=== PATIENT | female | born 1950 | race Caucasian/White ===

== ENCOUNTER 2020-09-26 13:37 | Outpatient (CLI) | payer MEDICARE, SELFPAY ==
--- NOTE | 2020-09-26 12:45 | DI.CT_ITS ---
Exam(s) CT HEAD WO EXAM: CT HEAD WO CLINICAL HISTORY: amnesia transient on Xarelto, memory change, R41.3-other amnesia. TECHNIQUE: Imaging Protocol: Axial computed tomography images with coronal and sagittal reformatted images were created and reviewed COMPARISON: No exams were available for comparison FINDINGS: There are no skull fractures nor fluid in the visualized paranasal sinuses. There is no evidence of intracranial hemorrhage, mass effect, or shift of midline structures. There are no extra-axial fluid collections. The ventricles are not enlarged or shifted and there is no blo od within the ventricular system nor within the basal cisterns. IMPRESSION: No acute intracranial findings on this noninfused CT scan of the brain. RADIATION DOSE DELIVERED: 799.67mGy.cm Total DLP DATA REPOSITORY: All CT scans at this facility are submitted to the National Radiology Data Registry (NRDR) Dose Index Registry (DIR) with the [employer] (ACR). RADIATION OPTIMIZATION: All CT scans at this facility use at least one of these dose optimization te chniques: automated exposure control; mA and/or kV adjustment per patient size (includes targeted exa ms where dose is matched to clinical indication); or iterative reconstruction.
--- OUTSIDE RECORDS SUMMARY | 2020-09-26 13:43 | XMS_ITS | Continuity of Care Document ---
:1950 Author Organization [facility] Address [address] [place] [id number]- Care Team Providers Name Role Phone MY Primary Care Physician Encounter BVT Date(s): 03/13/20 - 03/13/[address] [address]- Discharge Disposition: Home Attending Physician: ARBAHAN PEPE Admitting Physician: ABRAHAN PEPE Allergies, Adverse Reactions, Alerts Substance Reaction Severity Status erythromycin Anaphylaxis Active penicillin Anaphylaxis Active Bee Stings Active Assessment and Plan Future Appointments Immunizations Given and Recorded Vaccine Date Status Refusal Reason influenza, inactivated 11/22/19 Recorded influenza, inactivated 11/22/19 Recorded influenza, inactivated 11/22/18 Recorded influenza, inactivated1 11/12/17 Recorded pneumococcal, unspecified formulation 05/11/16 Recorded ZOS, shingles 12/14/13 Recorded Td(adult) unspecified formulation 08/06/08 Recorded 1Location History: [facility] [address], [place] Medications Advil 200 mg oral tablet mg tab(s), Oral, q6hr, 0 Refill(s) Start Date: 11/16/17 Status: Orderedamitriptyline 10 mg oral tablet 10 mg = 1 tab(s), Oral, Once a day (at bedtime), # 90 tab(s), 3 Refill(s), [facility]: [facility]. UNIT #, 1 tab(s) Oral Once a day (at bedtime) Start Date: 02/13/20 Status: Orderedcalcium (as carbonate) 600 mg oral tablet 1,200 mg = 2 tab(s), Oral, Daily, 0 Refill(s) Start Date: 02/19/18 Status: Orderedcannabidiol See Instructions, 25 mg Oral BID, 0 Refill(s) Start Date: 06/09/19 Status: Orderedcyclobenzaprine 10 mg oral tablet 10 mg = 1 tab(s), Oral, TID, PRN PRN for spasm, # 40 tab(s), 3 Refill(s), Pharmacy: [facility] [address] #, 1 tab(s) Oral TID,PRN:for spasm Start Date: 07/25/19 Status: OrderedFish Oil 500 mg oral capsule mg cap(s), Oral, BID, 0 Refill(s) Start Date: 09/26/19 Status: Orderedibandronate 150 mg oral tablet 150 mg = 1 tab(s), Oral, qMonth, # 3 tab(s), 3 Refill(s), Pharmacy: [facility] [address] UN[address] #, 1tab(s) Oral qMonth Start Date: 05/19/19 Status: Orderedmetoprolol succinate 100 mg oral tablet, extended release 100 mg = 1 tab(s), Oral, Daily, # 90 tab(s), 3 Refill(s), Pharmacy: [facility] [address] #, Replaces the 50 mg tabs, 1 tab(s) Oral Daily Start Date: 09/26/19 Status: Orderedtriamcinolone 0.1% topical ointment 1 santiago, TOP, TID, # 15 gm, 0 Refill(s), Pharmacy: [facility] UN[address] #, 1 santiago TOP TID Start Date: 01/16/20 Status: OrderedVitamin B12 0 Refill(s) Start Date: 01/18/18 Status: OrderedVitamin D3 400 intl units oral capsule 400 IntUnit = 1 cap(s), Oral, Daily, 0 Refill(s) Start Date: 02/19/18 Status: OrderedXarelto 20 mg oral tablet 20 mg = 1 tab(s), Oral, qPM, with evening meal, # 90 tab(s), 3 Refill(s), Pharmacy: [facility] [address] UN[address] #, 1 tab(s) Oral qPM,Instr:with evening meal Start Date: 02/20/20 Status: Ordered Problem List Condition Effective Dates Status Health Status Informant Paroxysmal atrial Active fibrillation(Confirmed) Procedures Procedure Date Related Diagnosis Body Site Status Mammography assessment (Category 2) - 04/08/16 Completed Benign finding Mammography assessment (Category 1) - 03/12/15 Completed Negative Bone density scan 01/02/15 Completed Mammography assessment (Category 2) - 12/13/13 Completed Benign finding Mammography assessment (Category 1) - 09/29/12 Completed Negative Bone density scan 08/24/12 Completed Results Laboratory List Name Date Automated Differential Standard 03/13/20 CBC w/Diff Standard 03/13/20 Ferritin Serum 03/13/20 Iron Level 03/13/20 Most recent to oldest [Reference Range]: 1 NRBC Auto Pct [0.00-0.20 %] 0.00 % (03/13/20 8:08 AM) Hct [34.1-44.9 %] 39.7 % (03/13/20 8:08 AM) Hgb [11.5-15.7 gm/dL] 12.6 gm/dL (03/13/20 8:08 AM) Iron [37.0-145.0 ug/dL] 45.0 ug/dL (03/13/20 8:08 AM) Lymph Auto [15.0-45.0 %] 25.0 % (03/13/20 8:08 AM) MCH [25.6-32.2 pg] 26.5 pg (03/13/20 8:08 AM) MCHC [32.3-36.5 gm/dL] 31.7 gm/dL *LOW* (03/13/20 8:08 AM) MCV [79.4-94.8 fL] 83.6 fL (03/13/20 8:08 AM) Weld Auto [4.0-14.0 %] 7.0 % (03/13/20 8:08 AM) MPV [9.4-12.4 fL] 9.7 fL (03/13/20 8:08 AM) Neutro Auto [50.0-75.0 %] 65.0 % (03/13/20 8:08 AM) Platelet [150-400 x10(3)/uL] 379 x10(3)/uL (03/13/20 8:08 AM) RBC [3.93-5.22 x10(6)/uL] 4.75 x10(6)/uL (03/13/20 8:08 AM) Basophil Auto [0.0-2.0 %] 1.0 % (03/13/20 8:08 AM) Eos Auto [0.0-8.0 %] 1.7 % (03/13/20 8:08 AM) WBC [4.0-10.0 x10(3)/uL] 7.0 x10(3)/uL (03/13/20 8:08 AM) Ferritin, Serum [13.0-150.0 ng/mL] 69.6 ng/mL (03/13/20 8:08 AM) Lymph Absolute [1.20-3.70 x10(3)/uL] 1.76 x10(3)/uL (03/13/20 8:08 AM) Weld Absolute [0.20-0.40 x10(3)/uL] 0.49 x10(3)/uL *HI* (03/13/20 8:08 AM) Eos Absolute [0.04-0.54 x10(3)/uL] 0.12 x10(3)/uL (03/13/20 8:08 AM) NRBC Absolute [0.00-0.01 x10(3)/uL] 0.00 x10(3)/uL (03/13/20 8:08 AM) Neutro Absolute [1.56-6.13 x10(3)/uL] 4.58 x10(3)/uL (03/13/20 8:08 AM) RDW-CV [11.7-14.4 %] 13.4 % (03/13/20 8:08 AM) Immature Gran % [0.00-2.30 %] 0.30 % (03/13/20 8:08 AM) Immature Gran Absolute 0.02 x10(3)/uL *NA* (03/13/20 8:08 AM) Basophil Absolute [0.00-0.10 x10(3)/uL] 0.07 x10(3)/uL (03/13/20 8:08 AM) Social History Social History Type Response Smoking Status Never (less than 100 in life time) entered on: 06/09/19 Sex
--- OUTSIDE RECORDS SUMMARY | 2020-09-26 13:43 | XMS_ITS | Continuity of Care Document ---
:1950 Author Organization [facility] Address [address] [place] [id number]- Care Team Providers Name Role Phone RATTE Primary Care Physician Encounter BVT [facility] [id number] Date(s): 06/07/19 - 06/07/[address] [address]- Encounter Diagnosis Postmenopausal bleeding (Final) - Discharge Disposition: Home or Self Care Attending Physician: JOSSELINE AMOR MD Admitting Physician: JOSSELINE AMOR MD Allergies, Adverse Reactions, Alerts Substance Reaction Severity Status erythromycin Anaphylaxis Active penicillin Anaphylaxis Active Bee Stings Active Assessment and Plan Future Appointments Immunizations Given and Recorded Vaccine Date Status Refusal Reason influenza, inactivated 11/22/18 Recorded influenza, inactivated1 11/12/17 Recorded pneumococcal, unspecified formulation 05/11/16 Recorded ZOS, shingles 12/14/13 Recorded Td(adult) unspecified formulation 08/06/08 Recorded 1Location History: [facility] [address], [place] Medications Advil 200 mg oral tablet mg tab(s), Oral, q6hr, 0 Refill(s) Start Date: 11/16/17 Status: Orderedamitriptyline 10 mg oral tablet 10 mg = 1 tab(s), Oral, Once a day (at bedtime), # 90 tab(s), 3 Refill(s), [facility]: [facility] #, 1 tab(s) Oral Once a day (at bedtime) Start Date: 02/09/19 Status: Orderedamitriptyline 10 mg oral tablet 10 mg = 1 tab(s), Oral, HS, # 90 tab(s), 3 Refill(s), Pharmacy: [address] UNIT #, 1 tab(s) Oral HS Start Date: 05/07/17 Status: Orderedcalcium (as carbonate) 600 mg oral tablet 1,200 mg = 2 tab(s), Oral, Daily, 0 Refill(s) Start Date: 02/19/18 Status: Orderedcyclobenzaprine 10 mg oral tablet 10 mg = 1 tab(s), Oral, TID, PRN PRN for spasm, # 40 tab(s), 3 Refill(s), Pharmacy: [address] UNIT #, 1 tab(s) Oral TID,PRN:for spasm Start Date: 05/07/17 Status: Orderedferrous sulfate 325 mg (65 mg elemental iron) oral delayed release tablet See Instructions, 1 tab(s) Oral every other day, 0 Refill(s) Start Date: 02/19/18 Status: Orderedibandronate 150 mg oral tablet 150 mg = 1 tab(s), Oral, qMonth, # 3 tab(s), 3 Refill(s), Pharmacy: [address] UNIT #, 1tab(s) Oral qMonth Start Date: 05/19/19 Status: Orderedmetoprolol succinate 50 mg oral tablet, extended release 100 mg = 2 tab(s), Oral, Daily, # 180 tab(s), 0 Refill(s), Pharmacy: [address] UNIT #, This is a dosage increase to 100mg; replaces previous rx of 75mg, 2 tab(s) Oral Daily Start Date: 05/09/19 Status: OrderedVitamin B12 0 Refill(s) Start Date: 01/18/18 Status: OrderedVitamin D3 400 intl units oral capsule 400 IntUnit = 1 cap(s), Oral, Daily, 0 Refill(s) Start Date: 02/19/18 Status: OrderedXarelto 20 mg oral tablet 20 mg = 1 tab(s), Oral, qPM, with evening meal, # 90 tab(s), 3 Refill(s), Pharmacy: [address] UNIT #, 1 tab(s) Oral qPM,Instr:with evening meal Start Date: 02/09/19 Status: Ordered Problem List Condition Effective Dates [...] Negative Bone density scan 08/24/12 Completed Results Radiology Reports true Exam Date Time Procedure Performing Provider Status 06/07/19 3:35 PM US Pelvis and Transvaginal Meenu Hernandez; Auth (Verified) Notes:(US Pelvis and Transvaginal) Reason For Exam: PMBUS Pelvis and Transvaginal EXAMINATION: US Pelvis and Transvaginal CLINICAL HISTORY: PMB;N95.0 Postmenopausal bleeding PROCEDURE: Grayscale and color Doppler imaging of the pelvis was performed. FINDINGS: The uterus is unremarkable and measures 5 x 4 x 3 cm.(LxWxH). Endometrium is not thickened and measures approximately 2 to 3 mm. This may represent endometrial atrophy. The right ovary is overall unremarkable and measures 2 x 1.7 x 1.4 cm. The left ovary is not seen. No masses or abnormal fluid collections are identified. IMPRESSION: No endometrial thickening. Suggestion for endometrial atrophy. Thank you for letting us participate in the care of this patient. For questions regarding this report, please contact the number below. Final Dictated: 06/07/2019 3:52 pm ZEV MURPHY Signed (Electronic Signature): 06/07/2019 3:52 pm Signed by: ZEV MURPHY Technologist: Meenu Hernandez Social History Social History Type Response Smoking Status Never (less than 100 in life time) entered on: 01/07/17 Sex
--- OUTSIDE RECORDS SUMMARY | 2020-09-26 13:44 | XMS_ITS | Continuity of Care Document ---
:1950 Author Organization [facility] Address [address] [place] [address] Care Team Providers Name Role Phone RATTE Primary Care Physician Encounter BVT Date(s): 07/14/19 - 07/14/19 [facility] [address] [place] [address] [place] [address]- Encounter Diagnosis PMB (postmenopausal bleeding) (Discharge Diagnosis) - 07/14/19 Cervical cancer screening (Discharge Diagnosis) - 07/14/19 Discharge Disposition: Home or Self Care Attending Physician: JOSSELINE AMOR MD Allergies, Adverse Reactions, Alerts Substance Reaction Severity Status erythromycin Anaphylaxis Active penicillin Anaphylaxis Active Bee Stings Active Assessment and Plan Extracted from: Title: [facility]--postmenopausal bleeding Author: Stephanie AMOR MD Date: 07/14/19 History of Present Illness Heavenly presents today for an exam. She w as previously seen via telehealth visit for a single episode of vaginal spotting lasting 1 day. A subsequent pelvic ultrasound revealed a very thin endometrium. She reports no further bleeding since t hat episode. She does have a history of intermittent constipation secondary to iron supplementation. She reports needing to strain with bowel movements. She do es not take a stool softener. She denie s any other [employer] E[employer]OMIST complaints or concerns. No problems with urination, no urinary incontinence, no symptoms of prolapse, no vaginal discharge or odor. Following her exam (normal), I reassured her that it does not appear that her bleeding represents a gynecologic process. It is most likely related to her constipation. I am advising she initiate stool softeners. If she has any further blee ding she should call me. We also discussed the use of a tampon to determine whether or not the origin is vaginal. Finally, I recommend she follow-up in a year f or a normal annual exam. In the meantim e, I will order her a mammogram since she is due. All questions were answered. Health Status Allergies: Allergic Reactions (All) Severity Not Documented Bee Stings- No reactions were documented . Erythromycin- Anaphylaxis. Penicillin- Anaphylaxis. Current medications: (Selected) Prescriptions Prescribed Xarelto 20 mg oral tablet: 20 mg = 1 tab (s), Oral, qPM, with evening meal, 90 tab(s), 3 Refill(s) amitriptyline 10 mg oral tablet: 10 mg = 1 tab(s), Oral, Once a day (at bedtime), 90 tab(s), 3 Refill(s) amitriptyline 10 mg oral tablet: 10 mg, 1 tab(s), Oral, HS, 90 tab(s), 3 Refill(s) cyclobenzaprine 10 mg oral tablet: 10 mg , 1 tab(s), Oral, TID, PRN: for spasm, 40 tab(s), 3 Refill(s) ibandronate 150 mg oral tablet: 150 mg = 1 tab(s), Oral, qMonth, 3 tab(s), 3 Refill(s) metoprolol succinate 50 mg oral tablet, extended release: 100 mg = 2 tab(s), Oral, Daily, 180 tab(s), 0 Refill(s) Documented Medications Documented Advil 200 mg oral tablet: mg, tab(s), Or al, q6hr, 0 Refill(s) Vitamin B12: 0 Refill(s) Vitamin D3 400 intl units oral capsule: 400 IntUnit = 1 cap(s), Oral, Daily, 0 Refill(s) calcium (as carbonate) 600 mg oral table t: 1,200 mg = 2 tab(s), Oral, Daily, 0 Refill(s) cannabidiol: See Instructions, 25 mg Ora l BID, 0 Refill(s) ferrous sulfate 325 mg (65 mg elemental iron) oral delayed release tablet: See Instructions, 1 tab(s) Oral every other day, 0 Refill(s) Problem list (past medical history): All Problems Paroxysmal atrial fibrillation / [id number] / Confirmed Inactive: Fibromyalgia / [id number] Inactive: Insomnia / [id number] Inactive: MVP (mitral valve prolapse) / [id number] Inactive: Psoriatic arthritis / [id number] 9 Resolved: / Resolved: / Resolved: / Resolved: / Resolved: / Canceled: Atrial fibrillation / 53537045 Canceled: Paroxysmal [place] / [id number] Review of Systems Constitutional: No fever, No chills. Eye Ear/Nose/Mouth/Throat Cardiovascular: Negative. Respiratory: Negative. Breast: Negative. Gastrointestinal: Constipation. Genitourinary: No dysuria, No urinary i ncontinence. Gynecologic: No vaginal discharge, Min es vaginal odor. Hematology/Lymphatics Endocrine Immunologic Musculoskeletal Integumentary Neurologic Psychiatric: Negative. Physical Examination VS/Measurements Vital Signs 07/14/2019 8:54 EDT Temperature Tympanic 36.3 DegC LOW Peripheral Pulse Rate 88 bpm Systolic Blood Pressure 112 mmHg Diastolic Blood Pressure 68 mmHg SpO2 97 % , Measurements from flowsheet : Measurem ents 07/14/2019 8:54 EDT Height 163 cm Weight 58.97 kg Body Mass Index 22.2 kg/m2 Constitutional: -Appearance : well-nourished, well- developed, alert Respiratory: -Respiratory Effort : unlabored Cardiovascular: -Peripheral Vascular System: Extrem ities: no edema Genitourinary: -External Genitalia : no inflammati on, no lesions -Vagina : normal vault, no abnormal discharge, no inflammatory lesions, no masses -Urethral Meatus : no inflammation present -Bladder : non-tender -Cervix : appearance healthy, no le sions, non-tender, no discharge, no bleeding -Uterus : non-tender, no masses, no rmal size, anteflexed -Adnexa : non-tender, no masses -Anus : no lesions -Perineum : within normal limits Skin and Subcutaneous Tissue: -Genitalia / Groin : no rashes pres ent, no lesions present, no areas of discoloration Psychiatric -Mood and Affect : mood normal, aff ect appropriate -Orientation : oriented to person, place, time Impression and Plan Diagnosis PMB (postmenopausal bleeding) ([id number] N95.0). --Single episode of postmenopausal bleed ing. --No evidence of a gynecologic source. Suspect possible GI source (? secondary to constipation). --Recommend observation. If another epi sode, consider tampon test. . Patient Instructions: --I recommend you start taking a stool s oftener. --Call me if you have any further bleedi ng. --I will order a mammogram for you. --Call the office if you have not receiv ed your Pap smear results in 3 weeks.. Future AppointmentsFuture Scheduled TestsRadiologyMA Mammogram Digital Screening 07/14/19 Functional Status 07/14/19 COVID-19 Screening None Immunizations Given and Recorded Vaccine Date Status Refusal Reason influenza, inactivated 11/22/18 Recorded influenza, inactivated1 11/12/17 Recorded pneumococcal, unspecified formulation 05/11/16 Recorded ZOS, shingles 12/14/13 Recorded Td(adult) unspecified formulation 08/06/08 Recorded 1Location History: [facility] [address], [place] Medications Advil 200 mg oral tablet mg tab(s), Oral, q6hr, 0 Refill(s) Start Date: 11/16/17 Status: Orderedamitriptyline 10 mg oral tablet 10 mg = 1 tab(s), Oral, Once a day (at bedtime), # 90 tab(s), 3 Refill(s), [facility], 1 tab(s) Oral Once a day (at bedtime) Start Date: 02/09/19 Status: Orderedamitriptyline 10 mg oral tablet 10 mg = 1 tab(s), Oral, HS, # 90 tab(s), 3 Refill(s), [facility] #, 1 tab(s) Oral HS [...] spasm, # 40 tab(s), 3 Refill(s), [facility]: [facility] #, 1 tab(s) Oral TID,PRN:for spasm Start Date: 05/07/17 Status: Orderedferrous sulfate 325 mg (65 mg elemental iron) oral delayed release tablet See Instructions, 1 tab(s) Oral every other day, 0 Refill(s) Start Date: 02/19/18 Status: Orderedibandronate 150 mg oral tablet 150 mg = 1 tab(s), Oral, qMonth, # 3 tab(s), 3 Refill(s), [facility]: [facility] [address] [facility] [facility] #, 1tab(s) Oral qMonth Start Date: 05/19/19 Status: Orderedmetoprolol succinate 50 mg oral tablet, extended release 100 mg = 2 tab(s), Oral, Daily, # 180 tab(s), 0 Refill(s), [facility]acy: [facility] [address] [facility] #, This is a dosage [...] meal, # 90 tab(s), 3 Refill(s), Pharmacy: [facility] #, 1 tab(s) Oral qPM,Instr:with [...] Completed Negative Bone density scan 08/24/12 Completed Vital Signs Most recent to oldest [Reference Range]: 1 Temperature Tympanic [36.6-38.1 DegC] 36.3 DegC *LOW* (5/8/20 8:54 AM) Peripheral Pulse Rate [60-100 bpm] 88 bpm (07/14/19 8:54 AM) Blood Pressure [90-140/60-90 mmHg] 112/68 mmHg (07/14/19 8:54 AM) SpO2 [92-100 %] 97 % (07/14/19 8:54 AM) Height 163 cm (07/14/19 8:54 AM) Height/Length Measured (inches) 64.2 in (07/14/19 8:54 AM) Weight 58.97 kg (07/14/19 8:54 AM) Weight Measured (lbs) 129.734 lb (07/14/19 8:54 AM) BSA Measured 1.63 m2 (07/14/19 8:54 AM) Body Mass Index 22.2 kg/m2 (07/14/19 8:54 AM) Social History Social History Type Response Smoking Status Never (less than 100 in life time) entered on: 06/09/19 Sex
--- OUTSIDE RECORDS SUMMARY | 2020-09-26 13:44 | XMS_ITS | Continuity of Care Document ---
:1950 Author Organization [facility] Address [address] [place] [phone]- Care Team Providers Name Role Phone MY Primary Care Physician Encounter BVT Date(s): 05/17/19 - 05/17/[address] [address]- Discharge Disposition: Home or Self Care Attending Physician: ABRAHAN PEPE Admitting Physician: ABRAHAN PEPE Allergies, Adverse [...] HS, # 90 tab(s), 3 Refill(s), Pharmacy: [address] UNIT #, 1 tab(s) Oral HS Start Date: 05/07/17 Status: Orderedcalcium (as carbonate) 600 mg oral tablet 1,200 mg = 2 tab(s), Oral, Daily, 0 Refill(s) Start Date: 02/19/18 Status: Orderedcyclobenzaprine 10 mg oral tablet 10 mg = 1 tab(s), Oral, TID, PRN PRN for spasm, # 40 tab(s), 3 Refill(s), Pharmacy: [address] UNIT #, 1 tab(s) Oral TID,PRN:for spasm Start Date: 05/07/17 Status: Orderedferrous sulfate 325 mg (65 mg elemental iron) oral delayed release tablet See Instructions, 1 tab(s) Oral every other day, 0 Refill(s) Start Date: 02/19/18 Status: Orderedibandronate 150 mg oral tablet 150 mg = 1 tab(s), Oral, qMonth, # 3 tab(s), 3 Refill(s), Pharmacy: [address] UN[address] #, 1tab(s) Oral qMonth Start Date: 02/19/18 Status: Orderedmetoprolol succinate 50 mg oral tablet, extended release 100 mg = 2 tab(s), Oral, Daily, # 180 tab(s), 0 Refill(s), Pharmacy: [address] UNIT #, This is a dosage increase [...] meal, # 90 tab(s), 3 Refill(s), Pharmacy: [address] UNIT #, 1 tab(s) Oral [...] Laboratory List Name Date Automated Differential Standard 05/17/19 CBC w/Diff Standard 05/17/19 Comprehensive Metabolic Panel Standard (CMP Standard) 05/17/19 FEIBC (TIBC with Iron) 05/17/19 Ferritin Serum 05/17/19 Hemoglobin A1c DC (A1c) 05/17/19 Lipid Panel Standard 05/17/19 Vitamin D, 25-Hydroxy 05/17/19 Most recent to oldest [Reference Range]: 1 NRBC Auto Pct [0.00-0.20 %] 0.00 % (05/17/19 7:52 AM) Creatinine [0.50-0.90 mg/dL] 0.53 mg/dL (05/17/19 7:52 AM) AGAP [10.0-18.0 mmol/L] 14.9 mmol/L (05/17/19 7:52 AM) Glucose Lvl [70-100 mg/dL] 94 mg/dL (05/17/19 7:52 AM) Hct [34.1-44.9 %] 40.6 % (05/17/19 7:52 AM) Hgb [11.5-15.7 gm/dL] 12.8 gm/dL (05/17/19 7:52 AM) Hgb A1c 5.7 % *NA* (05/17/19 7:52 AM) Iron [37.0-145.0 ug/dL] 56.0 ug/dL (05/17/19 7:52 AM) Lymph Auto [15.0-45.0 %] 25.1 % (05/17/19 7:52 AM) MCH [25.6-32.2 pg] 26.3 pg (05/17/19 7:52 AM) MCHC [32.3-36.5 gm/dL] 31.5 gm/dL *LOW* (05/17/19 7:52 AM) MCV [79.4-94.8 fL] 83.5 fL (05/17/19 7:52 AM) [place] Auto [4.0-14.0 %] 6.4 % (05/17/19 7:52 AM) MPV [9.4-12.4 fL] 10.2 fL (05/17/19 7:52 AM) Neutro Auto [50.0-75.0 %] 65.6 % (05/17/19 7:52 AM) Osmolality [268.0-291.0 mOsm/kg] 279.6 mOsm/kg (05/17/19 7:52 AM) Platelet [150-400 x10(3)/uL] 342 x10(3)/uL (05/17/19 7:52 AM) RBC [3.93-5.22 x10(6)/uL] 4.86 x10(6)/uL (05/17/19 7:52 AM) Sodium Lvl [136-145 mmol/L] 140 mmol/L (05/17/19 7:52 AM) TIBC [149.0-492.0 ug/dL] 263.0 ug/dL (05/17/19 7:52 AM) Total Protein [6.6-8.7 gm/dL] 7.4 gm/dL (05/17/19 7:52 AM) Trig [0.0-149.0 mg/dL] 106.8 mg/dL (05/17/19 7:52 AM) Albumin Lvl [3.50-5.20 gm/dL] 4.30 gm/dL (05/17/19 7:52 AM) Alk Phos [35-105 IntUnit/L] 59 IntUnit/L (05/17/19 7:52 AM) ALT [0-33 IntUnit/L] 7 IntUnit/L (05/17/19 7:52 AM) AST [0-32 IntUnit/L] 16 IntUnit/L (05/17/19 7:52 AM) Basophil Auto [0.0-2.0 %] 0.9 % (05/17/19 7:52 AM) Bili Total [0.0-1.3 mg/dL] 0.3 mg/dL (05/17/19 7:52 AM) CO2 [22-29 mmol/L] 27 mmol/L (05/17/19 7:52 AM) Eos Auto [0.0-8.0 %] 1.8 % (05/17/19 7:52 AM) WBC [4.0-10.0 x10(3)/uL] 5.7 x10(3)/uL (05/17/19 7:52 AM) BUN [6-23 mg/dL] 14 mg/dL (05/17/19 7:52 AM) Calcium Lvl [8.6-10.2 mg/dL] 9.1 mg/dL (05/17/19 7:52 AM) Chloride [98-107 mmol/L] 102 mmol/L (05/17/19 7:52 AM) Potassium Lvl [3.5-5.1 mmol/L] 3.9 mmol/L (05/17/19 7:52 AM) Vitamin D 25 OH 38 ng/mL *NA* (05/17/19 7:52 AM) UIBC [112.0-347.0 ug/dL] 207.0 ug/dL (05/17/19 7:52 AM) Ferritin, Serum [13.0-150.0 ng/mL] 47.6 ng/mL (05/17/19 7:52 AM) Cholesterol Total [0-200 mg/dL] 206 mg/dL *HI* (05/17/19 7:52 AM) Lymph Absolute [1.20-3.70 x10(3)/uL] 1.42 x10(3)/uL (05/17/19 7:52 AM) [place] Absolute [0.20-0.40 x10(3)/uL] 0.36 x10(3)/uL (05/17/19 7:52 AM) Eos Absolute [0.04-0.54 x10(3)/uL] 0.10 x10(3)/uL (05/17/19 7:52 AM) NRBC Absolute [0.00-0.01 x10(3)/uL] 0.00 x10(3)/uL (05/17/19 7:52 AM) HDL Cholesterol [40-60 mg/dL] 71 mg/dL *HI* (05/17/19 7:52 AM) Neutro Absolute [1.56-6.13 x10(3)/uL] 3.72 x10(3)/uL (05/17/19 7:52 AM) RDW-CV [11.7-14.4 %] 14.6 % *HI* (05/17/19 7:52 AM) GFR >60 mL/min/1.73 m2 *NA* (05/17/19 7:52 AM) GFR NonAfrican Egyptian >60 mL/min/1.73 m2 *NA* (05/17/19 7:52 AM) LDL Calculated 114 mg/dL *NA* (05/17/19 7:52 AM) Immature Gran % [0.00-2.30 %] 0.20 % (05/17/19 7:52 AM) Immature Gran Absolute 0.01 x10(3)/uL *NA* (05/17/19 7:52 AM) eAG Calc 117 mg/dL *NA* (05/17/19 7:52 AM) Basophil Absolute [0.00-0.10 x10(3)/uL] 0.05 x10(3)/uL (05/17/19 7:52 AM) Social History Social History Type Response Smoking Status Never (less than 100 in life time) entered on: 01/07/17 Sex
--- OUTSIDE RECORDS SUMMARY | 2020-09-26 13:44 | XMS_ITS | Continuity of Care Document ---
:1950 Author Organization [facility] Address [address] [place] [address] Care Team Providers Name Role Phone MY Primary Care Physician Encounter BVT Date(s): 09/26/19 - 09/26/19 [facility] [address] [facility] [place] [address] Encounter Diagnosis Paroxysmal atrial fibrillation (Discharge Diagnosis) - 09/26/19 Discharge Disposition: Home Attending Physician: ABRAHAN PEPE Allergies, Adverse Reactions, Alerts Substance Reaction Severity Status erythromycin Anaphylaxis Active penicillin Anaphylaxis Active Bee Stings Active Assessment and Plan Extracted from: Title: BFM: Rash, A. fib, iron deficiency Author: DELFIN PEPE Date: 09/26/19 anemia, osteopenia ? Rash -Arms > legs, possibly from sun exposur e VS psoriasis VS other allergic reaction. Responding very well to prednisone. -Complete prednisone course, call if ra sh worsens again ?? Paroxysmal A. fib -s/p 2 episode??in 10 years treated in hospital, last 09/2018.??Feels well on current BB dose, HR good. -Echo 01/2017 normal, LVEF 60-65%. -Continue metoprolol??succinate??100 mg daily. Taking 2??x 50 mg for now, Rx'd 100 mg tabs for next??refill. -Continue Xarelto 20mg qPM with meal. ?? Psoriatic arthritis, ?fibromyalgia -tick panel, RF, uric acid negative/nor mal -Following with [facility] rheumatology Dr. Karla quan, Rx'd self-managed prednisone for flares -Continue Advil as needed (up to 4 time s per day), triamcinolone topical as needed for skin lesions. ? h/o iron deficiency anemia -Hb 12.8, MCV 83,??Iron 56, TIBC 263, f erritin 47 (05/2019). ?? Hb 11.4, MCV 77, ferritin 17??(-02/2018) -Continue off iron supplementation,??ca using??constipation even qod. Discussed IV iron as possible alternative if needed in the future -Check CBC,??iron, ferritin in 6 months ?? Pre-DM -A1c 5.7%, FBS 94 (05/2019),??5.6%/92 (), 5.6% on 01/18/2018 ? Osteopenia -Bone density 12/2017 osteopenia left f emoral neck (-2.2), total left hip (- 1.6) and lumbar spine (-1.0). 10-year FRAX 3.8% for??hip fractures -Vitamin D 38 (05/2019) -Continue ibandronate 150mg monthly (st arted 05/2018),??calcium 1224-4247 mg daily, vitamin D 400-600 IU daily, regular exercise. -Will order repeat DEXA at next visit, due 05/2020 ? Insomnia -Continue amitriptyline 10 mg at bedtim e ?? Back spasms -Episodic, few times a year -Continue cyclobenzaprine 10 mg 3 times daily as needed ? Change in vision, L eye -Short-lived x1 05/2018, no recurrence s aishwarya -Saw Dr. Mcguire??OD,??ophthalmologic ev aluation normal per pt -Carotid duplex and??echo??normal 9 ? Healthcare maintenance -Colonoscopy 2016 in [place] negative, f/ u 5y for FHx -Mammogram 09/2019 BI-RADS 2 -Pap 07/2019 normal, negative HPV. Also normal 03/2015, 08/2012 and??02/2010. -HCV negative 03/2015 -S/P Pneumovax 23 on 05/2016, will be du e for Prevnar 13 -Tchol 206, HDL 71, LDL 114, TG 106 (2019) -CBC, CMP normal 05/2019 ? Follow-up in 6 months with labs ?? Physician Time: 25 minutes Part or all of this note was dictated u sing??surgical aide software.?? Unintended errors may be present. Future AppointmentsFuture Scheduled TestsLaboratoryIron Level 03/28/20CBC w/Diff Standard 03/28/20Ferritin Serum 03/28/20 Functional Status 09/26/19 COVID-19 Screening None Immunizations Given and Recorded [...] bedtime), # 90 tab(s), 3 Refill(s), [facility] #, 1 tab(s) Oral Once a day (at bedtime) Start Date: 02/09/19 Status: Orderedcalcium (as carbonate) 600 mg oral [...] qMonth, # 3 tab(s), 3 Refill(s), [facility]: [facility] #, 1tab(s) Oral qMonth Start Date: 05/19/19 Status: Orderedmetoprolol succinate 100 mg oral tablet, extended release 100 mg = 1 tab(s), Oral, Daily, # 90 tab(s), 3 Refill(s), Pharmacy: [facility] #, Replaces the 50 mg tabs, 1 tab(s) Oral Daily Start Date: 09/26/19 Status: Orderedtriamcinolone 0.1% topical ointment 1 santiago, TOP, TID, # 15 gm, 0 Refill(s), Pharmacy: [facility] #, 1 santiago TOP TID Start Date: 07/25/19 Status: OrderedVitamin B12 0 Refill(s) Start Date: 01/18/18 Status: OrderedVitamin D3 400 intl units oral capsule 400 IntUnit = 1 cap(s), Oral, Daily, 0 Refill(s) Start Date: 02/19/18 Status: OrderedXarelto 20 mg oral tablet 20 mg = 1 tab(s), Oral, qPM, with evening meal, # 90 tab(s), 3 Refill(s), Pharmacy: [facility] [...] recent to oldest [Reference Range]: 1 Temperature Temporal Artery [36.3-37.8 DegC] 36.7 DegC (09/26/19 10:21 AM) Peripheral Pulse Rate [60-100 bpm] 80 bpm (09/26/19 10:21 AM) Blood Pressure [90-140/60-90 mmHg] 112/70 mmHg (09/26/19 10:21 AM) Pulse Site Pulse Oximetry (09/26/19 10:21 AM) SpO2 [92-100 %] 98 % (09/26/19 10:21 AM) Height 165.1 cm (09/26/19 10:21 AM) Height/Length Measured (inches) 65 in (09/26/19 10:21 AM) Weight 60.00 kg (09/26/19 10:21 AM) Weight Measured (lbs) 132 lb (09/26/19 10:21 AM) BSA Measured 1.66 m2 (09/26/19 10:21 AM) Body Mass Index 22.01 kg/m2 (09/26/19 10:21 AM) Social History Social History Type Response Smoking Status Never (less than 100 in life time) entered on: 06/09/19 Sex
--- OUTSIDE RECORDS SUMMARY | 2020-09-26 13:44 | XMS_ITS | Continuity of Care Document ---
:1950 Author Organization [facility] Address [address] [place] [address]- Care Team Providers Name Role Phone MY Primary Care Physician Encounter BVT Date(s): 04/16/20 - 04/16/[address] [address]- Discharge Disposition: Home Attending Physician: ABRAHAN PEPE Admitting Physician: ABRAHAN PEPE Allergies, Adverse Reactions, Alerts Substance Reaction Severity Status erythromycin Anaphylaxis Active penicillin Anaphylaxis Active Bee Stings Active Assessment and Plan Future AppointmentsFuture Scheduled TestsLaboratoryHemoglobin A1c DC 07/25/20C- Reactive Protein 07/25/20Comprehensive Metabolic Panel Standard 07/25/20Lipid Panel Standard 07/25/20ESR 07/25/20Vitamin D, 25-Hydroxy 07/25/20 Immunizations Given and Recorded Vaccine Date Status Refusal Reason Tdap 03/27/20 Given influenza, inactivated 11/22/19 Recorded influenza, inactivated 11/22/19 Recorded influenza, inactivated 11/22/18 Recorded influenza, inactivated1 11/12/17 Recorded pneumococcal, unspecified formulation 05/11/16 Recorded ZOS, shingles 12/14/13 Recorded Td(adult) unspecified formulation 08/06/08 Recorded 1Location History: [facility] [address], [place] Medications Advil 200 mg oral tablet mg tab(s), Oral, q6hr, 0 Refill(s) Start Date: 11/16/17 Status: Orderedamitriptyline 10 mg oral tablet 10 mg = 1 tab(s), Oral, Once a day (at bedtime), # 90 tab(s), 3 Refill(s), Pharmacy: [facility] [address] #, 1 tab(s) Oral [...] spasm, # 40 tab(s), 3 Refill(s), Pharmacy: [facility] [address] #, 1 tab(s) Oral TID,PRN:for spasm Start Date: 07/25/19 Status: OrderedFish Oil 500 mg oral capsule mg cap(s), Oral, BID, 0 Refill(s) Start Date: 09/26/19 Status: Orderedibandronate 150 mg oral tablet 150 mg = 1 tab(s), Oral, qMonth, # 3 tab(s), 3 Refill(s), Pharmacy: [facility] [address] #, 1tab(s) Oral qMonth Start Date: 05/19/19 Status: Orderedmetoprolol succinate 100 mg oral tablet, extended release 100 mg = 1 tab(s), Oral, Daily, # 90 tab(s), 3 Refill(s), Pharmacy: [facility] [address] #, Replaces the 50 mg tabs, 1 tab(s) Oral Daily Start Date: 09/26/19 Status: Orderedtriamcinolone 0.1% topical ointment 1 santiago, TOP, TID, # 15 gm, 0 Refill(s), [facility]acy: [facility] #, 1 santiago TOP TID Start Date: 01/16/20 Status: OrderedVitamin B12 0 Refill(s) Start Date: 01/18/18 Status: OrderedVitamin D3 400 intl units oral capsule 400 IntUnit = 1 cap(s), Oral, Daily, 0 Refill(s) Start Date: 02/19/18 Status: OrderedXarelto 20 mg oral tablet 20 mg = 1 tab(s), Oral, qPM, with evening meal, # 90 tab(s), 3 Refill(s), [facility]acy: [facility] [place] [address] [address] UN[address] #, 1 tab(s) Oral qPM,Instr:with [...] density scan 08/24/12 Completed Results Radiology Reports Exam Date Time Procedure Performing Provider Status 04/16/20 11:49 AM BD Procedure (DEXA) Sarahi Hartley; Auth (Verif ied) Notes:(BD Procedure (DEXA)) Reason For Exam: f/u osteopenia, on ibendronate x 2 years;ScreeningBD Procedure (DEXA) EXAMINATION: BD Procedure (DEXA) CLINICAL HISTORY: f/u osteopenia, on ibendronate x 2 years;M85.80 Other specified disorders of bone density and stru TECHNIQUE: Scans were acquired at the lumbar spine, left hip COMPARISON: 12/15/2017 DEXA scan FINDINGS: Lowest T-score at a diagnostic region of interest: T-score: -1.6, SREEDHAR: Left hip, WHO diagnosis: Osteopenia. IMPRESSION: Osteopenia based on World Health Organization criteria. Ten-year fracture risk is not reported because of treatment for osteoporosis. Estimating Fracture Risk: The relationship between bone mineral density (BMD) and risk of fracture is well established. As BMD decreases, risk increases. Quantifying risk is difficult and is usually limited to estimation of the relative risk - a term which may have limited value when trying to discuss an individual's risk. Estimating the absolute risk for a patient requires an understanding of the incidence rate in a given population and consideration of multiple, partially independent, risk factors in addition to BMD. The World Health Organization (WHO) has developed a fracture risk prediction tool that calculates a ten-year risk of major osteoporotic fracture based on femoral neck bone density measurements and nine clinical risk factors for individuals who have not been treated for osteoporosis. This is available through an interactive web-based interface (http://www.shef.ac.uk/FRAX/) and can be used to estimate a given patient's absolute risk of major osteoporotic fracture or hip fracture over the next 10 years. These estimates may prove useful when discussing risk with a patient. It is important, however, to understand the tool's limitations and how a given individual's risk might differ from the tool's estimate. The tool does not take into account the dose-response associated with most risk factors. For example, the significant increase in risk associated with multiple prior fractures compared to a single prior fracture is not taken into account. Similarly, the location of a previous fracture, the amount of glucocorticoids and number of cigarettes smoked are not considered. These limitations are discussed in a Frequently Asked Questions section of the FRAX website which you are encouraged to review. DXA data sheets with BMD measurements and plots are available in [employer] under the imaging tab. Paper copies will be sent to providers without [employer] access. If you have received this report without the data sheet and do not have access to [employer], please contact Radiology [facility] at [phone] Wednesday thru Wednesday 8am-4pm. Thank you for letting us participate in the care of this patient. For questions regarding this report, please contact the number below. Electronically signed by: Lila Rico MD, [facility] ([phone]), at 04/16/2020 1:03 PM Final Dictated: 04/16/2020 1:03 pm Lila Rico ([facility]) Signed (Electronic Signature): 04/16/2020 1:03 pm Signed by: Lila Rico ([facility]) Social History Social History Type Response Smoking Status Never (less than 100 in life time) entered on: 06/09/19 Sex
--- OUTSIDE RECORDS SUMMARY | 2020-09-26 13:44 | XMS_ITS | Continuity of Care Document ---
:1950 Author Organization [facility] Address [address] [place] [address] Care Team Providers Name Role Phone RATTE Primary Care Physician Encounter BVT Date(s): 06/09/19 - 06/09/19 [facility] [address] [place] [address] [place] [address]- Discharge Disposition: Home or Self Care Attending [...] bedtime), # 90 tab(s), 3 Refill(s), [facility]: [facility] #, 1 tab(s) Oral Once a day (at bedtime) Start Date: 02/09/19 Status: Orderedamitriptyline 10 mg oral tablet 10 mg = 1 tab(s), Oral, HS, # 90 tab(s), 3 Refill(s), [facility] [...] spasm, # 40 tab(s), 3 Refill(s), Pharmacy: [address] UNIT #, 1 tab(s) Oral TID,PRN:for spasm Start Date: 05/07/17 Status: Orderedferrous sulfate 325 mg (65 mg elemental iron) oral delayed release tablet See Instructions, 1 tab(s) Oral every other day, 0 Refill(s) Start Date: 02/19/18 Status: Orderedibandronate 150 mg oral tablet 150 mg = 1 tab(s), Oral, qMonth, # 3 tab(s), 3 Refill(s), Pharmacy: [address] UNIT #, 1tab(s) Oral qMonth Start Date: 05/19/19 Status: Orderedmetoprolol succinate 50 mg oral tablet, extended release 100 mg = 2 tab(s), Oral, Daily, # 180 tab(s), 0 Refill(s), Pharmacy: [address] UN[address] #, This is a [...] meal, # 90 tab(s), 3 Refill(s), Pharmacy: [address] UNIT #, 1 tab(s) Oral [...] Most recent to oldest [Reference Range]: 1 Peripheral Pulse Rate [60-100 bpm] 93 bpm (06/09/19 9:31 AM) Weight 58.51 kg (06/09/19 9:31 AM) Weight Measured (lbs) 128.722 lb (06/09/19 9:31 AM) Social History Social History Type Response Smoking Status Never (less than 100 in life time) entered on: 06/09/19 Sex
--- OUTSIDE RECORDS SUMMARY | 2020-09-26 13:44 | XMS_ITS | Continuity of Care Document ---
:1950 Author Organization [facility] Address [address] [place] [id number]- Care Team Providers Name Role Phone RATTE Primary Care Physician Encounter BVT Date(s): 07/14/19 - 07/14/[address] [address]- Encounter Diagnosis Cervical cancer screening (Discharge Diagnosis) - 07/14/19 Discharge Disposition: Home or Self Care Attending Physician: JOSSELINE AMOR MD Admitting Physician: JOSSELINE AMOR MD Allergies, Adverse Reactions, Alerts Substance Reaction Severity Status erythromycin Anaphylaxis Active penicillin Anaphylaxis Active Bee Stings Active Assessment and Plan Future AppointmentsDiagnostic Tests PendingPAP [facility] 07/14/19HPV [facility] 07/14/19 Future Scheduled TestsRadiologyMA Mammogram Digital Screening 07/14/19 Immunizations Given and Recorded Vaccine Date Status [...] bedtime), # 90 tab(s), 3 Refill(s), [facility]acy: [facility] #, 1 tab(s) Oral Once a day (at bedtime) Start Date: 02/09/19 Status: Orderedamitriptyline 10 mg oral tablet 10 mg = 1 tab(s), Oral, HS, # 90 tab(s), 3 Refill(s), Pharmacy: [facility] [address] #, 1 tab(s) Oral [...] spasm, # 40 tab(s), 3 Refill(s), Pharmacy: [address] UNIT #, 1 tab(s) Oral TID,PRN:for spasm Start Date: 05/07/17 Status: Orderedferrous sulfate 325 mg (65 mg elemental iron) oral delayed release tablet See Instructions, 1 tab(s) Oral every other day, 0 Refill(s) Start Date: 02/19/18 Status: Orderedibandronate 150 mg oral tablet 150 mg = 1 tab(s), Oral, qMonth, # 3 tab(s), 3 Refill(s), Pharmacy: [address] UNIT #, 1tab(s) Oral qMonth Start Date: 05/19/19 Status: Orderedmetoprolol succinate 50 mg oral tablet, extended release 100 mg = 2 tab(s), Oral, Daily, # 180 tab(s), 0 Refill(s), Pharmacy: [address] UNIT #, This is a [...] # 90 tab(s), 3 Refill(s), [facility]: [facility] [place] [address] ST[address] UN[address] #, 1 tab(s) Oral qPM,Instr:with [...] Completed Negative Bone density scan 08/24/12 Completed Social History Social History Type Response Smoking Status Never (less than 100 in life time) entered on: 06/09/19 Sex
--- OUTSIDE RECORDS SUMMARY | 2020-09-26 13:44 | XMS_ITS | Continuity of Care Document ---
:1950 Author Organization [facility] Address [address] [place] [id number]- Care Team Providers Name Role Phone RATTE Primary Care Physician Encounter [facility] [id number] Date(s): 09/12/19 - 09/12/[address] [address]- Encounter Diagnosis Encounter for screening mammogram for malignant neoplasm of breast (Final) - Asymptomatic menopausal state (Final) - Family history of malignant neoplasm of digestive organs (Final) - Discharge Disposition: Home or Self [...] spasm, # 40 tab(s), 3 Refill(s), Pharmacy: [address] UNIT #, 1 tab(s) Oral TID,PRN:for spasm Start Date: 07/25/19 Status: Orderedferrous sulfate 325 mg (65 mg elemental iron) oral delayed release tablet See Instructions, 1 tab(s) Oral every other day, 0 Refill(s) Start Date: 02/19/18 Status: Orderedibandronate 150 mg oral tablet 150 mg = 1 tab(s), Oral, qMonth, # 3 tab(s), 3 Refill(s), Pharmacy: [address] UNIT #, 1tab(s) Oral qMonth Start Date: 05/19/19 Status: Orderedmetoprolol succinate 50 mg oral tablet, extended release 100 mg = 2 tab(s), Oral, Daily, # 180 tab(s), 1 Refill(s), Pharmacy: [address] UNIT #, 2 tab(s) Oral Daily Start Date: 08/10/19 Status: Orderedtriamcinolone 0.1% topical ointment 1 santiago, TOP, TID, # 15 gm, 0 Refill(s), Pharmacy: [address] UNIT #, 1 santiago TOP TID Start Date: 07/25/19 Status: OrderedVitamin B12 0 Refill(s) Start Date: 01/18/18 Status: OrderedVitamin D3 400 intl units oral capsule 400 IntUnit = 1 cap(s), Oral, Daily, 0 Refill(s) Start Date: 02/19/18 Status: OrderedXarelto 20 mg oral tablet 20 mg = 1 tab(s), Oral, qPM, with evening meal, # 90 tab(s), 3 Refill(s), [facility] [...] Exam Date Time Procedure Performing Provider Status 09/12/19 9:44 AM MA Mammogram Digital Screening Patt Garcia; Shelley (Verified) Notes:(MA Mammogram Digital Screening) Reason For Exam: breast cancer screen;routine screeningMA Mammogram Digital Screening PATIENT IS POSTMENOPAUSAL. FAMILY HISTORY OF COLORECTAL CANCER AT AGE 80 IN FATHER, COLORECTAL CANCER AT AGE 82 IN PATERNAL GRANDMOTHER. BENIGN FNA BIOPSY OF THE LEFT BREAST, DECEMBER 1998. 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 PATIENT'S BMI IS 22.1. Last mammogram was performed 1 year and 3 months ago. Reason for exam: screening, asymptomatic breast cancer screen;Z12.39 Encounter for other screening for malignant neopla MA Mammogram Digital Screening: September 12, 2019 - Exam #: [id number] Bilateral CC and MLO view(s) were taken. Technologists: Yasmin Garcia RT( R ); ANNELIESE Cortés RT (R)(M) (ARRT) Prior study comparison: June 08, 2018, bilateral MA mammogram digital screening performed at [facility]. May 19, 2017, bilateral MA mammogram digital screening performed at [facility]. April 08, 2016, bilateral dig. Mammogram screening performed at [facility]. The breast tissue is heterogeneously dense, which could obscure detection of small masses. Bilateral mammography with CAD and digital breast tomosynthesis was performed. No dominant mass, architectural distortion or suspicious microcalcifications are seen. Benign. Calcifications laterally are stable. ASSESSMENT: Benign - Category 2 Routine screening mammogram of both breasts in 1 year. Electronically Signed By: Vesta Berg MD *#* *#* Read by: Vesta Berg M.D. Final Dictated: 09/12/2019 0:00 am VESTA BERG Signed (Electronic Signature): 09/12/2019 1:40 pm Signed by: VESTA BERG Transcribed by: [facility] Technologist: Vitor Garcia Social History Social History Type Response Smoking Status Never (less than 100 in life time) entered on: 06/09/19 Sex
--- OUTSIDE RECORDS SUMMARY | 2020-09-26 13:44 | XMS_ITS | Continuity of Care Document ---
:1950 Author Organization [facility] Address [address] [place] [id number]- Care Team Providers Name Role Phone MY Primary Care Physician Encounter [facility] Date(s): 05/28/20 - 05/28/[address] [address] Discharge Disposition: Home Attending Physician: ABRAHAN PEPE Admitting Physician: ABRAHAN PEPE Allergies, Adverse Reactions, Alerts Substance Reaction Severity Status erythromycin Anaphylaxis Active penicillin Anaphylaxis Active Bee Stings Active Assessment and Plan Future Appointments Immunizations Given and Recorded Vaccine Date Status Refusal Reason SARS-CoV-2 (COVID-19) mRNA-2361 vaccine 05/03/20 Recorded Tdap 03/27/20 Given influenza, inactivated 11/22/19 Recorded [...] spasm, # 40 tab(s), 3 Refill(s), Pharmacy: [address] #, 1 tab(s) Oral TID,PRN:for spasm Start Date: 07/25/19 Status: OrderedFish Oil 500 mg oral capsule mg cap(s), Oral, BID, 0 Refill(s) Start Date: 09/26/19 Status: Orderedibandronate 150 mg oral tablet 150 mg = 1 tab(s), Oral, qMonth, # 3 tab(s), 3 Refill(s), Pharmacy: [address] UNIT #, 1tab(s) Oral qMonth Start Date: 05/19/19 Status: Orderedmetoprolol succinate 100 mg oral tablet, extended release 100 mg = 1 tab(s), Oral, Daily, # 90 tab(s), 3 Refill(s), Pharmacy: [address] UN[address] #, Replaces the 50 mg tabs, 1 tab(s) Oral Daily Start Date: 09/26/19 Status: Orderedtriamcinolone 0.1% topical ointment 1 santiago, TOP, TID, # 15 gm, 0 Refill(s), Pharmacy: [address] UN[address] #, 1 santiago TOP TID Start Date: 05/28/20 Status: OrderedVitamin B12 0 Refill(s) Start Date: 01/18/18 Status: OrderedVitamin D3 400 intl units oral capsule 400 IntUnit = 1 cap(s), Oral, Daily, 0 Refill(s) Start Date: 02/19/18 Status: OrderedXarelto 20 mg oral tablet 20 mg = 1 tab(s), Oral, qPM, with evening meal, # 90 tab(s), 3 Refill(s), [facility]acy: [facility] #, 1 tab(s) Oral [...] 08/24/12 Completed Results Laboratory List Name Date C-Reactive Protein 05/28/20 Comprehensive Metabolic Panel Standard (CMP Standard) 05/28/20 ESR 05/28/20 Hemoglobin A1c DC (Hemoglobin A1c) 05/28/20 Lipid Panel Standard 05/28/20 Vitamin D, 25-Hydroxy 05/28/20 Most recent to oldest [Reference Range]: 1 Creatinine [0.50-0.90 mg/dL] 0.58 mg/dL (05/28/20 9:20 AM) AGAP [10.0-18.0 mmol/L] 13.0 mmol/L (05/28/20 9:20 AM) Glucose Lvl [70-100 mg/dL] 87 mg/dL (05/28/20 9:20 AM) Hgb A1c 5.8 % *NA* (05/28/20 9:20 AM) Osmolality [268.0-291.0 mOsm/kg] 274.7 mOsm/kg (05/28/20 9:20 AM) Sodium Lvl [136-145 mmol/L] 137 mmol/L (05/28/20 9:20 AM) Total Protein [6.6-8.7 gm/dL] 7.2 gm/dL (05/28/20 9:20 AM) Trig [0.0-149.0 mg/dL] 78.7 mg/dL (05/28/20 9:20 AM) Albumin Lvl [3.50-5.20 gm/dL] 3.90 gm/dL (05/28/20 9:20 AM) Alk Phos [35-105 IntUnit/L] 75 IntUnit/L (05/28/20 9:20 AM) ALT [0-33 IntUnit/L] 14 IntUnit/L (05/28/20 9:20 AM) AST [0-32 IntUnit/L] 17 IntUnit/L (05/28/20 9:20 AM) Bili Total [0.0-1.3 mg/dL] 0.3 mg/dL (05/28/20 9:20 AM) CO2 [22-29 mmol/L] 27 mmol/L (05/28/20 9:20 AM) CRP [0.0-5.0 mg/L] 23.7 mg/L *HI* (05/28/20 9:20 AM) BUN [6-23 mg/dL] 17 mg/dL (05/28/20 9:20 AM) Calcium Lvl [8.6-10.2 mg/dL] 9.0 mg/dL (05/28/20 9:20 AM) Chloride [98-107 mmol/L] 101 mmol/L (05/28/20 9:20 AM) Potassium Lvl [3.5-5.1 mmol/L] 4.0 mmol/L (05/28/20 9:20 AM) Vitamin D 25 OH 47 ng/mL *NA* (05/28/20 9:20 AM) Cholesterol Total [0-200 mg/dL] 190 mg/dL (05/28/20 9:20 AM) HDL Cholesterol [40-60 mg/dL] 73 mg/dL *HI* (05/28/20 9:20 AM) GFR NonAfrican Nigerian [>=60 mL/min/1.73 m2] 103 mL/m in/1.73 m2 (05/28/20 9:20 AM) Erythrocyte Sedimentation Rate [0-20 mm/hr] 24 mm/hr *HI* (05/28/20 9:20 AM) LDL Calculated 101 mg/dL *NA* (05/28/20 9:20 AM) eAG Calc 120 mg/dL *NA* (05/28/20 9:20 AM) Social History Social History Type Response Smoking Status Never (less than 100 in life time) entered on: 06/09/19 Sex
--- OUTSIDE RECORDS SUMMARY | 2020-09-26 13:45 | XMS_ITS | Continuity of Care Document ---
:1950 Author Organization [facility] Address [address] [place] [address] Care Team Providers Name Role Phone MY Primary Care Physician Encounter [facility] [id number] Date(s): 03/27/20 - 03/27/[address] [place] [address] Encounter Diagnosis Osteopenia (Discharge Diagnosis) - 03/27/20 Pruritic rash (Discharge Diagnosis) - 03/27/20 Psoriatic arthritis (Discharge Diagnosis) - 03/27/20 Encounter for administration of vaccine (Discharge Diagnosis) - 03/27/20 Pruritic rash (Discharge Diagnosis) - 03/27/20 Discharge Disposition: Home Attending Physician: ABRAHAN PEPE Allergies, Adverse Reactions, Alerts Substance Reaction Severity Status erythromycin Anaphylaxis Active penicillin Anaphylaxis Active Bee Stings Active Assessment and Plan Extracted from: Title: BFM: Rash, osteopenia, psoriatic Author: JAYESH PEPE Date: 03/27/20 arthritis, iron deficiency anemia Encounter for administration of vaccine??Z23 Orders: BD Procedure (DEXA), 05/06/20, Timed, Reason: Screening, Reason: f/u osteopenia, on ibendronate x 2 years, Due 05/2020, Osteopenia Osteoporosis screening, Transport Mode: Ambulatory, ABN Status: Required & Missing, Rad Type C-Reactive Protein, Blood, Routine col lect, *Est. 07/25/20 +/- 60 day(s), Psoriatic arthritis, Order for future visit, [facility] ESR, Blood, Routine collect, *Est. +/- 60 day(s), Psoriatic arthritis, Order for future visit, [facility] ? Rash -Arms > legs, very pruritic, intermitte nt, worse at night. Responding well to topical triamcinolone and PO prednisone, but returns. Continues after 6+ months. -Referred to??[facility] dermatology??for fur ther evaluation ?? Paroxysmal A. fib -s/p 2 episode??in 10 years treated in hospital, last 09/2018.??Feels well on current BB dose, HR good. -Echo 01/2017 normal, LVEF 60-65%. -Continue metoprolol??succinate??100 mg daily, Xarelto 20mg qPM with meal. ?? Psoriatic arthritis, ?fibromyalgia -Following with [facility] rheumatology, Rx'd self-managed prednisone for flares -Continue Advil as needed (up to 4 time s per day), triamcinolone topical as needed for skin lesions. -Check ESR, CRP in 3 months ?? h/o iron deficiency anemia -CBC normal, Iron 45, ferritin 69 stabl e??(03/2020 ).?? Hb 11.4, MCV 77, ferritin 17??(-02/2018) -Continue off iron supplementation (s/p constipation qod). ?? Pre-DM -A1c 5.7%, FBS 94 (05/2019),??5.6%/92 (). Glycemia likely??increases with prednisone rounds for psoriatic arthritis flares -Check A1c, CMP in 3 months? Osteopenia -Bone density 12/2017 osteopenia left f emoral neck (-2.2), total left hip (- 1.6) and lumbar spine (-1.0). 10-year FRAX 3.8% for??hip fractures -Vitamin D 38 (05/2019) -Continue ibandronate 150mg monthly (st arted 05/2018),??calcium 2038-3618 mg daily, vitamin D 400-600 IU daily, regular exercise. -ORDERED repeat??DEXA for 05/2020 -Check Vitamin D in 3 months ?? Insomnia -Continue amitriptyline 10 mg at bedtim e ?? Back spasms -Episodic, few times a year -Continue cyclobenzaprine 10 mg 3 times daily as needed ?? Healthcare maintenance -Colonoscopy 2016 in [place] negative, f/ u 5y for FHx. Discussed today she will be due for repeat this year -Mammogram 09/2019 BI-RADS 2 -Pap 07/2019 normal, negative HPV. Also normal 03/2015, 08/2012 and??02/2010. -HCV negative 03/2015 ?? - PPSV23 05/2016. Tdap 03/2008, booster g iven today 03/2020 -Zostavax 12/2013, discussed Shingrix, she will get it at the pharmacy after getting the COVID vaccine -flu shot 11/22/2019 -Tchol 206, HDL 71, LDL 114, TG 106 (2019) -CBC, CMP normal 05/2019 ?? -Check CMP, lipids in 3 months ? Follow-up in 3 months with labs ?? Physician Time:??30 minutes??spent??in patient care??on the day??of the encounter Part or all of this note was dictated u [employer] administrative support clerk software.?? Unintended errors may be present. ? Given tetanus/diphth/pertuss (Tdap) adult/ado l, 0.5 mL, IM . For: Encounter for administration of vaccine Future AppointmentsFuture Scheduled TestsLaboratoryHemoglobin A1c DC 07/25/20C- Reactive Protein 07/25/20Comprehensive Metabolic Panel Standard 07/25/20Lipid Panel Standard 07/25/20ESR 07/25/20Vitamin D, 25-Hydroxy 07/25/20RadiologyBD Procedure (DEXA) 04/16/20 Referrals to Other Providerspruritic rash, arms and legs, referred to: [facility] Referred by: ABRAHAN PEPE Functional Status 03/27/20 Recent Travel History No recent travel Family Member Travel History No recent travel COVID-19 Screening None Immunizations Given and Recorded [...] bedtime), # 90 tab(s), 3 Refill(s), Pharmacy: [address] UNIT #, 1 tab(s) Oral Once [...] spasm, # 40 tab(s), 3 Refill(s), Pharmacy: [address] UNIT #, 1 tab(s) Oral TID,PRN:for spasm Start Date: 07/25/19 Status: OrderedFish Oil 500 mg oral capsule mg cap(s), Oral, BID, 0 Refill(s) Start Date: 09/26/19 Status: Orderedibandronate 150 mg oral tablet 150 mg = 1 tab(s), Oral, qMonth, # 3 tab(s), 3 Refill(s), Pharmacy: [address] UNIT #, 1tab(s) Oral qMonth Start Date: 05/19/19 Status: Orderedmetoprolol succinate 100 mg oral tablet, extended release 100 mg = 1 tab(s), Oral, Daily, # 90 tab(s), 3 Refill(s), Pharmacy: [address] UNIT #, Replaces the 50 mg tabs, 1 tab(s) Oral Daily Start Date: 09/26/19 Status: Orderedtriamcinolone 0.1% topical ointment 1 santiago, TOP, TID, # 15 gm, 0 Refill(s), Pharmacy: [address] UNIT #, 1 santiago TOP TID Start Date: 01/16/20 Status: OrderedVitamin B12 0 Refill(s) Start Date: 01/18/18 Status: OrderedVitamin D3 400 intl units oral capsule 400 IntUnit = 1 cap(s), Oral, Daily, 0 Refill(s) Start Date: 02/19/18 Status: OrderedXarelto 20 mg oral tablet 20 mg = 1 tab(s), Oral, qPM, with evening meal, # 90 tab(s), 3 Refill(s), [facility], [facility] tab(s) Oral [...] Most recent to oldest [Reference Range]: 1 2 Temperature Temporal Artery [36.3-37.8 DegC] 35.8 DegC *LOW* (03/27/20 10:30 AM) Peripheral Pulse Rate [60-100 bpm] 67 bpm (03/27/20 10:30 AM) Blood Pressure [90-140/60-90 mmHg] 110/68 mmHg (03/27/20 10:30 AM) BP Site Right arm (03/27/20 10:30 AM) Pulse Site Pulse Oximetry (03/27/20 10:30 AM) SpO2 [92-100 %] 98 % (03/27/20 10:30 AM) Height 165.1 cm 165.1 cm (03/27/20 10:30 AM) (03/27/20 10:20 AM) Height/Length Measured (inches) 65 in 65 in (03/27/20 10:30 AM) (03/27/20 10:20 AM) Weight 60.78 kg 60.78 kg (03/27/20 10:30 AM) (03/27/20 10:20 AM) Weight Measured (lbs) 133.716 lb 133.716 lb (03/27/20 10:30 AM) (03/27/20 10:20 AM) BSA Measured 1.67 m2 1.67 m2 (03/27/20 10:30 AM) (03/27/20 10:20 AM) Body Mass Index 22.3 kg/m2 22.3 kg/m2 (03/27/20 10:30 AM) (03/27/20 10:20 AM) Social History Social History Type Response Smoking Status Never (less than 100 in life time) entered on: 06/09/19 Sex Reason for Referral pruritic rash, arms and legs, referred to: [facility] Referred by: ABRAHAN PEPE
== END 2020-09-26 13:57 ==
PROVIDERS: Visit Provider Physician Assistant
DX: R41.3 Other amnesia (principal); Z79.01 Long term (current) use of anticoagulants
CPT/HCPCS: 70450